=== PATIENT | male | born 1995 | race Caucasian/White ===

== ENCOUNTER 2020-10-12 21:49 | Emergency (ER) | payer SELFPAY ==
[2020-10-12 21:54] VITALS: BP 127/80; PULSE 92; RESP 21; TEMP 36.8; O2SAT 97; BMI 32.1
--- NOTE | 2020-10-12 22:09 | W.ED.GENADLT ---
HPI - General Adult General: Chief complaint: Abdominal Pain Stated complaint: NAUSEA/VOMITING, DIARRHEA Time Seen by Provider: 10/12/20 22:04 History of Present Illness: HPI narrative: Patient presents with a 3-day history of nausea vomiting diarrhea. Patient is able to keep crackers and Sprite down but that is about all. Denies any fever but has had some chills. Onset (ago): day(s) Associated symptoms: Reports fevers/chills, nausea and vomiting; Deny chest pain, dyspnea, headache(s) or rash Treatments prior to arrival: none Review of Systems Const: Denies: fever(s), chills or body aches Eyes: Denies: change in vision or blurry vision ENMT: Denies: throat pain or nasal congestion Card: Denies: chest pain or dyspnea on exertion Resp: Denies: dyspnea, productive cough or non-productive cough GI: Reports: nausea, vomiting and diarrhea : Denies: difficulty urinating Musc: Denies: extremity pain Skin/Breast: Denies: rash Neuro: Denies: headache(s) Psych: Denies: anxiety or depression Jaya/Lymph: Denies: easy bruising Physical Exam Const: COMMON NORMALS: no acute distress, average body habitus and patient oriented x3 HENMT: COMMON NORMALS: normocephalic HEAD & SCALP: normal to inspection and normocephalic FACE & SINUS: normal facial exam Eye: COMMON NORMALS: conjunctivae normal GENERAL EYE: appearance normal, both eyes and all related structures CONJUNCTIVA: Yes conjunctivae normal Neck/C-Spine: COMMON NORMALS: no JVD Chest: COMMONS NORMALS: normal inspection of the chest Resp: COMMON NORMALS: normal respiratory effort and clear to auscultation bilaterally AUSCULTATION: clear to auscultation bilaterally Cardio: COMMON NORMALS: no JVD, regular rate and regular rhythm RATE: regular rate RHYTHM: regular rhythm GI: COMMON NORMALS: Normal to inspection, nondistended, normoactive bowel sounds present AUSCULTATION: Yes normoactive bowel sounds (Patient is vomiting while examination is gone) Extremity: COMMON NORMALS: normal to inspection and full ROM Neuro: COMMON NORMALS: patient oriented x3 Course Vital Signs: Vital signs: Vital Signs Temperature 98.2 F 10/12/20 21:54 Pulse Rate 87 10/13/20 00:19 Respiratory Rate 16 10/13/20 00:33 Blood Pressure 126/79 10/13/20 00:19 Pulse Oximetry 99 10/13/20 00:19 MDM - General Adult MDM Narrative: Medical decision making narrative: Patient did much better with Reglan nausea stopped. Received 2 bags fluid. Discussed abnormal labs with Dr. Camarena went over CT results with Dr. Camarena. We felt that patient is good to go home follow-up with primary care provider drink plenty of fluids recheck labs this week. No evidence of stone blockage no evidence hepatitis. Patient was mildly dehydrated. Lab Data: Labs: Lab Results 10/12/20 10/12/20 10/12/20 Range/Units 22:10 22:10 22:10 WBC 12.6 H (4.0-10.0) 10^3/ uL RBC 5.46 H (4.1-5.3) 10^6/u L Hgb 16.9 H (11.7-16.6) g/dL Hct 46.0 (42.0-52.0) % MCV 84.2 (80-94) fL MCH 31.0 (28.0-34.0) pg MCHC 36.7 H (30.0-36.0) g/dL RDW 11.5 L (12.1-15.1) % Plt Count 317 (130-400) 10^3/c mm MPV 10.2 (7.4-10.4) fL Neut % (Auto) 67.7 % Lymph % (Auto) 24.8 % [place] % (Auto) 6.4 % Eos % (Auto) 0.3 % Baso % (Auto) 0.3 % Neut # (Auto) 8.51 H (1.8-7.7) 10^3/u L Lymph # (Auto) 3.1 (0.8-4.8) 10^3/u L [place] # (Auto) 0.8 (0.2-0.9) 10^3/u L Eos # (Auto) 0.0 (0.0-0.8) 10^3/u L Baso # (Auto) 0.0 (0.0-0.1) 10^3/u L Nucleated RBC % (a uto) 0 % Nucleated RBCs # 0.0 /100WBC Sodium 140 (136-145) mmol/L Potassium 3.5 (3.5-5.1) mmol/L Chloride 101 (98-107) mmol/L Carbon Dioxide 21 L (22-29) mmol/L Anion Gap 21.5 H (5-19) BUN 15 (6-20) mg/dL Creatinine 0.7 (0.7-1.2) mg/dL GFR Calculation 139.8 H (90-130) mL/min Glucose 100 (65-115) mg/dL Calculated Osmolal ity 291 (285-295) mOsm/k g Calcium 9.6 (8.5-10.5) mg/dL Total Bilirubin 2.5 H (0.15-1.2) mg/dL AST 15 (0-40) U/L ALT 19 (0-41) U/L Alkaline Phosphata se 62 (40-130) IU/L Total Protein 7.5 (6.6-8.7) g/dL Albumin 5.3 H (3.5-5.2) g/dL Globulin 2.2 (1.3-4.6) g/dL Lipase 12 L (13-60) U/L Urine Color (Yellow) Urine Appearance (CLEAR) Urine pH (5-7) Ur Specific Gravit y (1.005-1.030) Urine Protein (Negative) Urine Glucose (UA) (Normal) Urine Ketones (Negative) Urine Blood (Negative) Urine Nitrate (Negative) Urine Bilirubin (Negative) Urine Urobilinogen (Negative) mg/dL Ur Leukocyte Kianna ase (Negative) Hepatitis A IgM Ab Non-reactive (Nonreactive) Hep Bs Antigen Non-reactive (Nonreactive) Hep B Core IgM Ab Non-reactive (Nonreactive) Hepatitis C Antibo dy Non-reactive (Nonreactive) 10/12/20 Range/Units 22:34 WBC (4.0-10.0) 10^3/ uL RBC (4.1-5.3) 10^6/u L Hgb (11.7-16.6) g/dL Hct (42.0-52.0) % MCV (80-94) fL MCH (28.0-34.0) pg MCHC (30.0-36.0) g/dL RDW (12.1-15.1) % Plt Count (130-400) 10^3/c mm MPV (7.4-10.4) fL Neut % (Auto) % Lymph % (Auto) % [place] % (Auto) % Eos % (Auto) % Baso % (Auto) % Neut # (Auto) (1.8-7.7) 10^3/u L Lymph # (Auto) (0.8-4.8) 10^3/u L [place] # (Auto) (0.2-0.9) 10^3/u L Eos # (Auto) (0.0-0.8) 10^3/u L Baso # (Auto) (0.0-0.1) 10^3/u L Nucleated RBC % (a uto) % Nucleated RBCs # /100WBC Sodium (136-145) mmol/L Potassium (3.5-5.1) mmol/L Chloride (98-107) mmol/L Carbon Dioxide (22-29) mmol/L Anion Gap (5-19) BUN (6-20) mg/dL Creatinine (0.7-1.2) mg/dL GFR Calculation (90-130) mL/min Glucose (65-115) mg/dL Calculated Osmolal ity (285-295) mOsm/k g Calcium (8.5-10.5) mg/dL Total Bilirubin (0.15-1.2) mg/dL AST (0-40) U/L ALT (0-41) U/L Alkaline Phosphata se (40-130) IU/L Total Protein (6.6-8.7) g/dL Albumin (3.5-5.2) g/dL Globulin (1.3-4.6) g/dL Lipase (13-60) U/L Urine Color Yellow (Yellow) Urine Appearance Clear (CLEAR) Urine pH 8 H (5-7) Ur Specific Gravit y 1.015 (1.005-1.030) Urine Protein Neg (Negative) Urine Glucose (UA) Norm (Normal) Urine Ketones 2+ H (Negative) Urine Blood Neg (Negative) Urine Nitrate Negative (Negative) Urine Bilirubin 1+ H (Negative) Urine Urobilinogen 4+ H (Negative) mg/dL Ur Leukocyte Kianna ase Negative (Negative) Hepatitis A IgM Ab (Nonreactive) Hep Bs Antigen (Nonreactive) Hep B Core IgM Ab (Nonreactive) Hepatitis C Antibo dy (Nonreactive) Discharge Plan Discharge Patient Disposition: Home Clinical Impression: Gastroenteritis Condition: Stable Prescriptions: New Zofran 4 mg tablet 4 mg PO Q8H 3 Days Qty: 9 RF: 0 Discharge Orders: Discharge ED (Routine); Ordered 10/13/20 Ordered By: Jace Callahan Discharge Diet: Advance as tolerated and As Directed Discharge Activity: Increase activity as tolerated Patient Instructions: Gastroenteritis (ED) Activity Restrictions/Additional Instructions: Follow-up with medical provider as directed. Take medications as prescribed. Return to the ER or your medical provider if condition worsens. Please read and understand discharge instructions. If any questions ask please. If no improvement in [id number] hours follow-up your family medical provider. Slowly advance diet with clear liquids and crackers bread or Sprite type foods. Coding Level of Care Code ED Layboy Tender for Michael Fwd Exam Comprehensive
[2020-10-12] MEDS: sodium chloride 0.9% 1,000 ML 999 ML IV ×2 (22:19→23:20)
[2020-10-12] MEDS: ondansetron 2 mg/ML SDV 2 mL 8 MG IVP (22:20)
[2020-10-12 22:23] LABS: Basophils % 0.3 %; Eosinophils % 0.3 %; Hemoglobin 16.9 g/dL (11.7-16.6); Lymphocytes # 3.1 10^3/uL (0.8-4.8); Lymphocytes % 24.8 %; Mean Corpuscular HGB Conc 36.7 g/dL (30.0-36.0); Mean Corpuscular Volume 84.2 fL (80-94); Mean Platelet Volume 10.2 fL (7.4-10.4); Monocytes # 0.8 10^3/uL (0.2-0.9); Monocytes % 6.4 %; Neutrophils # 8.51 10^3/uL (1.8-7.7); Neutrophils % 67.7 %; Nucleated Red Blood Cells % 0 %; Platelet Count 317 10^3/cmm (130-400); Red Blood Count 5.46 10^6/uL (4.1-5.3); Red Cell Distribution Width 11.5 % (12.1-15.1); White Blood Count 12.6 10^3/uL (4.0-10.0)
[2020-10-12 22:38] LABS: Add Urine Microscopic? NO; Charge for UA Resulting for Rev
[2020-10-12 22:39] LABS: Alanine Aminotransferase 19 U/L (0-41); Albumin Level 5.3 g/dL (3.5-5.2); Alkaline Phosphatase 62 IU/L (40-130); Anion Gap 21.5 (5-19); Aspartate Amino Transferase 15 U/L (0-40); Blood Urea Nitrogen 15 mg/dL (6-20); Calcium 9.6 mg/dL (8.5-10.5); Carbon Dioxide 21 mmol/L (22-29); Chloride 101 mmol/L (98-107); Globulin 2.2 g/dL (1.3-4.6); Glomerular Filtration Rate 139.8 mL/min (90-130); Glucose 100 mg/dL (65-115); Lipase 12 U/L (13-60); Osmolality Calculated 291 mOsm/kg (285-295); Potassium 3.5 mmol/L (3.5-5.1); Sodium 140 mmol/L (136-145); Total Bilirubin 2.5 mg/dL (0.15-1.2); Total Protein 7.5 g/dL (6.6-8.7)
--- NOTE | 2020-10-12 22:52 | CTR_ITS ---
PROCEDURE INFORMATION: Exam: CT Abdomen And Pelvis With Contrast Exam date and time: 10/12/2020 10:56 PM Age: 25 years old Clinical indication: Nausea and vomiting; Patient HX: C/O n/v/d; Additional info: Abd pain, elevated bili TECHNIQUE: Imaging protocol: Computed tomography of the abdomen and pelvis with contrast. Axial, coronal and sagittal reformatted images were created and reviewed. Radiation optimization: All CT scans at this facility use at least one of these dose optimization techniques: automated exposure control; mA and/or kV adjustment per patient size (includes targeted exams where dose is matched to clinical indication); or iterative reconstruction. Contrast material: OMNI 300; Contrast volume: 95 ml; Contrast route: INTRAVENOUS (IV); COMPARISON: No relevant prior studies available. RADIATION DOSE METRICS: Total DLP (mGy-cm): 1749.2 FINDINGS: Liver: Unremarkable. Gallbladder and bile ducts: No radiodense gallstones. No biliary ductal dilatation. Pancreas: Unremarkable. Spleen: Mild splenomegaly. Adrenal glands: Normal. No mass. Kidneys and ureters: No mass. No radiodense calculi. No hydronephrosis. Stomach and bowel: No bowel wall thickening. No obstruction. No pneumatosis. Appendix: Normal. Intraperitoneal space: No free fluid. No organized fluid collection. No free air. Vasculature: Unremarkable. No aneurysm. Lymph nodes: Small mesenteric lymph nodes, nonspecific in appearance. No pathologically enlarged lymph nodes. Urinary bladder: Mild circumferential urinary bladder wall thickening, likely secondary to underdistention. Reproductive: Unremarkable. Bones/joints: No acute osseous abnormality. Soft tissues: Unremarkable. CT/CT abdomen pelvis w con* [id number]: 1[address] No CT evidence of acute intra-abdominal or pelvic pathology. 2. Additional findings, as above. Radiation Dose CTDIVOL = (mGy): DLP = 1749.2 (mGy-cm)
[2020-10-12 22:53] LABS: Bilirubin Urine 1+ (Negative); Blood Urine Neg (Negative); Glucose Urine UA Norm (Normal); Ketones Urine 2+ (Negative); Leukocyte Esterase Urine Negative (Negative); Nitrate Urine Negative (Negative); Protein Urine Neg (Negative); Specific Gravity, Urine 1.015 (1.005-1.030); Urine Appearance Clear (CLEAR); Urine Color Yellow (Yellow); Urobilinogen Urine 4+ mg/dL (Negative); pH Urine 8 (5-7)
[2020-10-12] MEDS: metoclopramide 5 mg/mL SDV 2 mL 10 MG IVP (23:32)
[2020-10-12] MEDS: iohexol 300 mg/mL 100 mL Btl IV (23:38)
[2020-10-12 23:41] LABS: Hepatitis A Antibody IgM Non-Reactive (Nonreactive); Hepatitis B Core IgM Non-Reactive (Nonreactive); Hepatitis B Surface Antigen Non-Reactive (Nonreactive); Hepatitis C Virus Antibody Non-Reactive (Nonreactive)
[2020-10-13 00:19] VITALS: BP 126/79; PULSE 87; RESP 19; O2SAT 99
[2020-10-13 00:33] VITALS: RESP 16
== END 2020-10-13 00:34 | disposition home or self-care (01) ==
PROVIDERS: Emergency Provider Nurse Practitioner Family
DX: K52.9 Noninfective gastroenteritis and colitis, unspecified (principal)
CPT/HCPCS: 74177; 80053; 80074; 81003; 83690; 85025; 96361; 96374; 96375; 99283; J2405; J2765; J7030; Q9967

== ENCOUNTER 2021-04-11 02:43 | Emergency (ER) | payer SELFPAY ==
[2021-04-11 02:51] VITALS: BP 132/95; PULSE 56; RESP 24; TEMP 36.3; O2SAT 97; BMI 32.1
--- NOTE | 2021-04-11 02:55 | CTR_ITS ---
PROCEDURE INFORMATION: Exam: CT Abdomen And Pelvis Without Contrast Exam date and time: 04/11/2021 2:55 AM Age: 26 years old Clinical indication: Abdominal pain; Right; Patient HX: RT flank pain; Additional info: Right flank pain TECHNIQUE: Imaging protocol: Computed tomography of the abdomen and pelvis without contrast. Radiation optimization: All CT scans at this facility use at least one of these dose optimization techniques: automated exposure control; mA and/or kV adjustment per patient size (includes targeted exams where dose is matched to clinical indication); or iterative reconstruction. COMPARISON: CT abdomen pelvis w con* [id number] 10/12/2020 11:36 PM RADIATION DOSE METRICS: Total DLP (mGy-cm): 1530.71 FINDINGS: Lungs: The lung bases are clear. Liver: Unremarkable. Gallbladder and bile ducts: No definite gallbladder abnormality by CT. No biliary tree dilation. Pancreas: Unremarkable. Spleen: Unremarkable. Adrenal glands: Unremarkable. Kidneys and ureters: Very small right lower pole intrarenal calculus. Mild right hydronephrosis and hydroureter. There is a 2-3 mm distal right ureteral calculus, about 15 mm from the UVJ. The left kidney appears essentially unremarkable. Stomach and bowel: No significant bowel distention. There are no CT findings to strongly suggest diverticulitis. Appendix: The appendix is visualized and appears normal. Intraperitoneal space: No free intraperitoneal air, or ascites. Vasculature: No evidence for abdominal aortic aneurysm. Lymph nodes: Numerous borderline/mildly prominent mesenteric nodes, a nonspecific appearance. These are probably slightly more prominent than on the comparison exam This may represent reactive lymphadenopathy. Mesenteric adenitis might also be considered. Urinary bladder: The urinary bladder is essentially empty, limiting evaluation. Reproductive: Essentially unremarkable for age. Bones/joints: Mild degenerative disc changes in the lower lumbar spine. Soft tissues: Very small umbilical hernia, containing only fat. CT/CT kidney stone [id number] IMPRESSION: 1. 2-3 mm distal right ureteral calculus, details above. 2. Mild right hydronephrosis and hydroureter. 3. Normal appendix. 4. Numerous borderline/mildly prominent mesenteric nodes, see above discussion. 5. No free air or bowel distention. 6. Other findings discussed above. Radiation Dose CTDIVOL = (mGy): DLP = 1530.71 (mGy-cm)
--- NOTE | 2021-04-11 02:57 | W.ED.ABDPA2 ---
HPI - Abdominal Pain General: Chief Complaint: Abdominal Pain Stated Complaint: lower rt abd pain to back Time Seen by Provider: 04/11/21 02:44 Source: patient Mode of arrival: ambulatory Limitations: no limitations History of Present Illness: HPI narrative: 26-year-old male who states he had a sudden onset of severe right flank pain that radiates into his groin an hour and a half ago. Patient is obviously in pain here he states he had vomited due to the pain he states pain 10 out of 10. He denies any worsening proving factors. Denies any tenderness palpation. He has no history of kidney stones denies any testicle or penile pain. Associated Symptoms: Reports nausea and vomiting; Denies chills and fever(s) Review of Systems Const: Denies: fever(s), chills, body aches or change in appetite Eyes: Denies: blurry vision or eye discomfort ENMT: Denies: throat pain or dental pain Card: Denies: chest pain Resp: Denies: dyspnea GI: Reports: abdominal pain, nausea and vomiting : Reports: flank pain Musc: Denies: neck pain or back pain Skin/Breast: Denies: rash Neuro: Denies: headache(s) Psych: Denies: depression Jaya/Lymph: Denies: easy bruising All/Imm: Denies: urticaria Physical Exam Const: COMMON NORMALS: no acute distress, patient oriented x3 and healthy appearing HENMT: COMMON NORMALS: normocephalic and atraumatic HEAD & SCALP: normocephalic and atraumatic Eye: COMMON NORMALS: Equal, round and reactive pupils present and EOMs intact bilaterally PUPIL: Yes Equal, round and reactive pupils present Neck/C-Spine: COMMON NORMALS: full ROM and supple Chest: COMMONS NORMALS: normal inspection of the chest and normal palpation of entire chest wall Resp: COMMON NORMALS: normal respiratory effort, No retractions, No use of accessory muscles and clear to auscultation bilaterally AUSCULTATION: clear to auscultation bilaterally Cardio: COMMON NORMALS: regular rate, regular rhythm and No murmurs present (Cardio) RATE: regular rate RHYTHM: regular rhythm GI: COMMON NORMALS: Normal to inspection, nondistended, normoactive bowel sounds present, Soft to palpation, non-tender and no masses PALPATION: Yes Soft to palpation Extremity: COMMON NORMALS: normal to inspection and full ROM Neuro: COMMON NORMALS: patient oriented x3, moves all extremities and no focal motor deficits Psych: COMMON NORMALS: mental status grossly normal, Normal thought process present and cooperative THOUGHT PROCESS: Normal thought process present Skin: COMMON NORMALS: no rashes or lesions noted and no wounds GENERAL SKIN EXAM: no rashes or lesions noted Course Vital Signs: Vital signs: Vital Signs Temperature 97.4 F L 04/11/21 02:51 Pulse Rate 56 L 04/11/21 02:51 Respiratory Rate 22 H 04/11/21 04:29 Blood Pressure 132/95 04/11/21 02:51 Pulse Oximetry 97 04/11/21 02:51 MDM - Abdominal Pain MDM Narrative: Medical decision making narrative: Patient presents here with a kidney stone small kidney stone urinary to pass patient's pain is improved he is stable for discharge and will pass at home we will give him follow-up with Dr. Shanks will prescribe him pain meds for home. He is return if worsening or change agrees to plan. Lab Data: Labs: Lab Results 04/11/21 04/11/21 04/11/21 02:59 02:59 03:00 WBC 8.0 10^3/uL 10^3/ uL (4.0-10.0) RBC 4.78 10^6/uL 10^6 /uL (4.1-5.3) Hgb 14.8 g/dL g/dL (11.7-16.6) Hct 41.6 % L % (42.0-52.0) MCV 87.0 fl fl (80-94) MCH 31.0 pg pg (28.0-34.0) MCHC 35.6 g/dL g/dL (30.0-36.0) RDW 11.8 % L % (12.1-15.1) Plt Count 254 10^3/cmm 10^3 /cmm (130-400) MPV 10.4 fL fL (7.4-10.4) Neut % (Auto) 61.9 % % Lymph % (Auto) 28.2 % % [place] % (Auto) 8.0 % % Eos % (Auto) 1.2 % % Baso % (Auto) 0.5 % % Neut # (Auto) 4.96 10^3/uL 10^3 /uL (1.8-7.7) Lymph # (Auto) 2.3 10^3/uL 10^3/ uL (0.8-4.8) [place] # (Auto) 0.6 10^3/uL 10^3/ uL (0.2-0.9) Eos # (Auto) 0.1 10^3/uL 10^3/ uL (0.0-0.8) Baso # (Auto) 0.0 10^3/uL 10^3/ uL (0.0-0.1) Nucleated RBC % (a uto) 0 % % Nucleated RBCs # 0.0 /100WBC /100W BC Sodium 139 mmol/L mmol/L (136-145) Potassium 3.7 mmol/L mmol/L (3.5-5.1) Chloride 103 mmol/L mmol/L (98-107) Carbon Dioxide 21 mmol/L L mmol/ L (22-29) Anion Gap 18.7 (5-19) BUN 16 mg/dL mg/dL (6-20) Creatinine 0.9 mg/dL mg/dL (0.7-1.2) GFR Calculation 103.7 mL/min mL/m in (90-130) Glucose 163 mg/dL H mg/dL (65-115) Calculated Osmolal ity 293 mOsm/kg mOsm/ kg (285-295) Calcium 9.2 mg/dL mg/dL (8.5-10.5) Total Bilirubin 0.7 mg/dL mg/dL (0.15-1.2) AST 18 U/L U/L (0-40) ALT 20 U/L U/L (0-41) Alkaline Phosphata se 52 IU/L IU/L (40-130) Total Protein 6.7 g/dL g/dL (6.6-8.7) Albumin 4.6 g/dL g/dL (3.5-5.2) Globulin 2.1 g/dL g/dL (1.3-4.6) Lipase 18 U/L U/L (13-60) Urine Color Yellow (Yellow) Urine Appearance Clear (CLEAR) Urine pH 5 (5-7) Ur Specific Gravit y 1.030 (1.005-1.030) Urine Protein 1+ H (Negative) Urine Glucose (UA) Norm (Normal) Urine Ketones Negative (Negative) Urine Blood 3+ H (Negative) Urine Nitrate Negative (Negative) Urine Bilirubin Neg (Negative) Urine Urobilinogen Norm mg/dL mg/dL (Negative) Ur Leukocyte Kianna ase Negative (Negative) Urine RBC 40-50 /hpf H /hpf (0-2) Urine WBC Rare /hpf /hpf (0-5) Ur Squamous Epith Cells None /hpf /hpf (0-5) Calcium Oxalate Cr ystal 5-10 /hpf H /hpf Amorphous Sediment Not Reportable Urine Bacteria None /hpf /hpf (NONE) Urine Mucus 2+ /hpf /hpf Imaging Data ^: CT Abd/Pel: Attestation: I personally reviewed and interpreted this imaging study as follows: Radiologist's impression: Variable [address] [address] [address] Scan Report Signed Patient: Efren Sainz Unit #: [id number] : 1995 Age/Sex: 26 / M ADM Date: 04/11/21 Loc: ER Room/Bed: Attending Dr: Ordering Provider/Ordering MD: Patricia Storey MD Date of Service: 04/11/21 Procedure(s): CT kidney stone [id number] Accession Number(s): [id number] Report Number: [id number] PROCEDURE INFORMATION: Exam: CT Abdomen And Pelvis Without Contrast Exam date and time: 04/11/2021 2:55 AM Age: 26 years old Clinical indication: Abdominal pain; Right; Patient HX: RT flank pain; Additional info: Right flank pain TECHNIQUE: Imaging protocol: Computed tomography of the abdomen and pelvis without contrast. Radiation optimization: All CT scans at this facility use at least one of these dose optimization techniques: automated exposure control; mA and/or kV adjustment per patient size (includes targeted exams where dose is matched to clinical indication); or iterative reconstruction. COMPARISON: CT abdomen pelvis w con* [id number] 10/12/2020 11:36 PM RADIATION DOSE METRICS: Total DLP (mGy-cm): 1530.71 FINDINGS: Lungs: The lung bases are clear. Liver: Unremarkable. Gallbladder and bile ducts: No definite gallbladder abnormality by CT. No biliary tree dilation. Pancreas: Unremarkable. Spleen: Unremarkable. Adrenal glands: Unremarkable. Kidneys and ureters: Very small right lower pole intrarenal calculus. Mild right hydronephrosis and hydroureter. There is a 2-3 mm distal right ureteral calculus, about 15 mm from the UVJ. The left kidney appears essentially unremarkable. Stomach and bowel: No significant bowel distention. There are no CT findings to strongly suggest diverticulitis. Appendix: The appendix is visualized and appears normal. Intraperitoneal space: No free intraperitoneal air, or ascites. Vasculature: No evidence for abdominal aortic aneurysm. Lymph nodes: Numerous borderline/mildly prominent mesenteric nodes, a nonspecific appearance. These are probably slightly more prominent than on the comparison exam This may represent reactive lymphadenopathy. Mesenteric adenitis might also be considered. Urinary bladder: The urinary bladder is essentially empty, limiting evaluation. Reproductive: Essentially unremarkable for age. Bones/joints: Mild degenerative disc changes in the lower lumbar spine. Soft tissues: Very small umbilical hernia, containing only fat. CT/CT kidney stone [id number] IMPRESSION: 1. 2-3 mm distal right ureteral calculus, details above. 2. Mild right hydronephrosis and hydroureter. 3. Normal appendix. 4. Numerous borderline/mildly prominent mesenteric nodes, see above discussion. 5. No free air or bowel distention. 6. Other findings discussed above. Radiation Dose CTDIVOL = (mGy): DLP = 1530.71 (mGy-cm) Dictated By: Modesto Hill MD Signed By: Modesto Hill MD Signed Date/Time: 04/11/214 DD/ 4 Discharge Plan Discharge Patient Disposition: Home Clinical Impression: Kidney stone on right side Condition: Stable Prescriptions: New hydrocodone-acetaminophen 5-325 mg tablet 1 tab PO Q6H PRN (Reason: pain) Qty: 14 RF: 0 ondansetron 4 mg tablet,disintegrating 4 mg PO Q6H PRN (Reason: nausea and vomiting) Qty: 14 RF: 0 Discharge Orders: Discharge ED (Routine); Ordered 04/11/21 Ordered By: Patricia Storey Discharge Diet: Advance as tolerated Discharge Activity: Resume usual activity Patient Instructions: Kidney Stones (ED), Opioid Safety Coding Level of Care Code ED Lasting Machine Operator Hand Method for Chg Fwd Exam Comprehensive
[2021-04-11 03:03] VITALS: RESP 20
[2021-04-11 03:03] LABS: Basophils % 0.5 %; Eosinophils # 0.1 10^3/uL (0.0-0.8); Eosinophils % 1.2 %; Hematocrit 41.6 % (42.0-52.0); Hemoglobin 14.8 g/dL (11.7-16.6); Lymphocytes # 2.3 10^3/uL (0.8-4.8); Lymphocytes % 28.2 %; Mean Corpuscular HGB Conc 35.6 g/dL (30.0-36.0); Mean Platelet Volume 10.4 fL (7.4-10.4); Monocytes # 0.6 10^3/uL (0.2-0.9); Neutrophils # 4.96 10^3/uL (1.8-7.7); Neutrophils % 61.9 %; Nucleated Red Blood Cells % 0 %; Platelet Count 254 10^3/cmm (130-400); Red Blood Count 4.78 10^6/uL (4.1-5.3); Red Cell Distribution Width 11.8 % (12.1-15.1)
[2021-04-11] MEDS: HYDROmorphone 1 mg/mL INJ 1 mL IVP ×2 (03:03→04:29)
[2021-04-11] MEDS: ondansetron 2 mg/ML SDV 2 mL 4 MG IVP (03:04)
[2021-04-11] MEDS: sodium chloride 0.9% 1,000 ML 999 ML IV (03:04)
[2021-04-11 03:29] LABS: Alanine Aminotransferase 20 U/L (0-41); Albumin Level 4.6 g/dL (3.5-5.2); Alkaline Phosphatase 52 IU/L (40-130); Anion Gap 18.7 (5-19); Aspartate Amino Transferase 18 U/L (0-40); Blood Urea Nitrogen 16 mg/dL (6-20); Calcium 9.2 mg/dL (8.5-10.5); Carbon Dioxide 21 mmol/L (22-29); Chloride 103 mmol/L (98-107); Globulin 2.1 g/dL (1.3-4.6); Glomerular Filtration Rate 103.7 mL/min (90-130); Glucose 163 mg/dL (65-115); Lipase 18 U/L (13-60); Osmolality Calculated 293 mOsm/kg (285-295); Potassium 3.7 mmol/L (3.5-5.1); Sodium 139 mmol/L (136-145); Total Bilirubin 0.7 mg/dL (0.15-1.2); Total Protein 6.7 g/dL (6.6-8.7)
[2021-04-11 03:29] LABS: Add Urine Microscopic? YES; Bilirubin Urine Neg (Negative); Blood Urine 3+ (Negative); Glucose Urine UA Norm (Normal); Ketones Urine Negative (Negative); Leukocyte Esterase Urine Negative (Negative); Nitrate Urine Negative (Negative); Protein Urine 1+ (Negative); Urine Appearance Clear (CLEAR); Urine Color Yellow (Yellow); Urobilinogen Urine Norm (Negative); pH Urine 5 (5-7)
[2021-04-11 03:30] LABS: RBC Urine 40-50 /hpf (0-2); WBC Urine RARE /hpf (0-5)
[2021-04-11 03:31] LABS: Mucus Urine 2+ /hpf
[2021-04-11] MEDS: ketorolac 30 mg/mL INJ 15 MG IVP (04:28)
[2021-04-11 04:29] VITALS: RESP 22
[2021-04-11 05:16] VITALS: RESP 16; O2SAT 98
[2021-04-11] MEDS: fentaNYL 50 mcg/mL INJ 2mL IVP (05:16)
[2021-04-11 05:26] VITALS: BP 142/78; PULSE 78; RESP 18; O2SAT 98
--- NOTE | 2021-04-11 09:37 | DCPLANNER ---
manager floral had message to schedule a follow up appointment for patient with Dr. Shanks. manager floral called the office of Dr. Shanks, spoke with Kaylah, gave clinic patients information. manager floral was told that patients information would be printed and reviewed. Clinic will call patient with appointment information.
--- NOTE | 2021-04-15 15:30 | DCPLANNER ---
Patient had a follow up appointment scheduled for 04.14.[address] Cat office - patient did not attend appointment.
== END 2021-04-11 05:29 | disposition home or self-care (01) ==
PROVIDERS: Emergency Provider Emergency Medicine
DX: N20.0 Calculus of kidney (principal)
CPT/HCPCS: 74176; 80053; 81001; 83690; 85025; 96361; 96374; 96375; 96376; 99284; J1170; J1885; J2405; J3010; J7030

== ENCOUNTER 2021-04-15 17:21 | Emergency (ER) | payer SELFPAY ==
[2021-04-15 17:37] VITALS: BP 130/67; PULSE 63; RESP 16; TEMP 36.8; O2SAT 98; BMI 32.1
[2021-04-15 18:39] LABS: Bilirubin Urine Neg (Negative); Blood Urine 2+ (Negative); Glucose Urine UA Norm (Normal); Ketones Urine 2+ (Negative); Nitrate Urine Negative (Negative); Protein Urine Neg (Negative); Specific Gravity, Urine 1.005 (1.005-1.030); Sulfosalicylic Acid Urine Positive (Negative); Urine Appearance Clear (CLEAR); Urine Color Yellow (Yellow); pH Urine 8 (5-7)
[2021-04-15 18:40] LABS: Add Urine Culture? No; Add Urine Microscopic? YES; Bacteria Urine TRACE /hpf; Leukocyte Esterase Urine Trace (Negative); Mucus Urine 2+ /hpf; RBC Urine 0-4 /hpf (0-2); Urobilinogen Urine 4 mg/dL (Negative); WBC Urine 0-4 /hpf (0-5)
--- NOTE | 2021-04-15 21:06 | PC.NURSE ---
no answer @ [id number] for room
--- NOTE | 2021-04-15 21:17 | PC.NURSE ---
no answer @ [id number] for room
== END 2021-04-15 21:18 | disposition left against medical advice (07) ==
PROVIDERS: Family Medicine; PCP Urology
DX: Z53.21 Procedure and treatment not carried out due to patient leaving prior to being seen by health care provider (principal)
CPT/HCPCS: 81001

== ENCOUNTER 2022-02-06 15:50 | Emergency (ER) | payer SELFPAY ==
[2022-02-06 16:35] VITALS: BP 152/74; PULSE 69; RESP 18; TEMP 37.4; O2SAT 99; BMI 30.1
--- NOTE | 2022-02-06 16:45 | XRR_ITS ---
PROCEDURE INFORMATION: Exam: XR Chest Exam date and time: 02/06/2022 4:52 PM Age: 26 years old Clinical indication: Shortness of breath; Additional info: SOB TECHNIQUE: Imaging protocol: Radiologic exam of the chest. Views: 2 views. COMPARISON: No relevant prior studies available. FINDINGS: Lungs: Lungs are clear bilaterally. Pleural spaces: No pleural effusion. No pneumothorax. Heart/Mediastinum: The cardiac silhouette and mediastinal contours are unremarkable. Bones/joints: Unremarkable for age. XR/XR chest 2V* [id number] IMPRESSION: Negative chest radiographs.
[2022-02-06 17:31] LABS: Basophils % 0.3 %; Eosinophils # 0.1 10^3/uL (0.0-0.8); Eosinophils % 0.5 %; Hematocrit 44.2 % (42.0-52.0); Lymphocytes # 2.2 10^3/uL (0.8-4.8); Lymphocytes % 23.3 %; Mean Corpuscular HGB Conc 36.2 g/dL (30.0-36.0); Mean Corpuscular Hemoglobin 31.1 pg (28.0-34.0); Mean Platelet Volume 9.9 fL (7.4-10.4); Monocytes # 0.6 10^3/uL (0.2-0.9); Monocytes % 6.2 %; Neutrophils # 6.41 10^3/uL (1.8-7.7); Neutrophils % 69.4 %; Nucleated Red Blood Cells % 0 %; Platelet Count 319 10^3/cmm (130-400); Red Blood Count 5.14 10^6/uL (4.1-5.3); Red Cell Distribution Width 11.5 % (12.1-15.1); White Blood Count 9.2 10^3/uL (4.0-10.0)
--- NOTE | 2022-02-06 17:35 | ED_ITS ---
HPI - URI/Sore Throat General: Chief Complaint: Shortness of Breath/Dyspnea Stated Complaint: SOB Time Seen by Provider: 02/06/22 17:00 History of Present Illness: Patient is a 26-year-old male comes to the ED with upper respiratory symptoms. Patient is currently having a productive cough with thick green and yellow sputum, fever and some lower bilateral pleuritic rib pain. Symptoms started yesterday, but patient says 10 days ago he was having COVID symptoms and tested positive for COVID. He is feeling better about 2 days ago, but then yesterday symptoms of productive cough and fever started up again. He admits having episodes of vomiting but is able to keep p.o. food and fluids down. Associated symptoms: Reports fever(s); Deny abdominal pain, chills, chest pain, diarrhea, headache(s), nasal congestion, nausea or vomiting Review of Systems Const: Reports: fever(s); Denies: chills or fatigue Eyes: Denies: change in vision or eye discomfort ENMT: Denies: throat pain, odynophagia, nasal discharge or nasal congestion Card: Denies: chest pain, palpitations, edema, swelling of feet/ankles, dyspnea on exertion or orthopnea Resp: Reports: productive cough and pain on inspiration; Denies: dyspnea or non-productive cough GI: Denies: abdominal pain, nausea, vomiting, diarrhea, constipation or hematochezia : Denies: flank pain, difficulty urinating, dysuria or hematuria Musc: Denies: neck pain, back pain or extremity swelling Skin/Breast: Denies: rash or new lesions Neuro: Denies: headache(s), numbness in extremities or weakness in extremities [facility] ED PFSH: Medical History No pertinent family history Surgical History No pertinent past surgical history Physical Exam Const: COMMON NORMALS: no acute distress, patient oriented x3 and alert GENERAL APPEARANCE: cooperative and comfortable HENMT: COMMON NORMALS: normocephalic HEAD & SCALP: normocephalic MOUTH: Normal oral and palatal mucosa present THROAT: posterior oropharynx normal and uvula midline Eye: COMMON NORMALS: Equal, round and reactive pupils present and conjunctivae normal CONJUNCTIVA: Yes conjunctivae normal PUPIL: Yes Equal, round and reactive pupils present Neck/C-Spine: COMMON NORMALS: supple GENERAL: Yes normal visual inspection Chest: CHEST: Yes tenderness costal cartilage Laterality: bilateral Resp: COMMON NORMALS: normal respiratory effort, No retractions, No use of accessory muscles and clear to auscultation bilaterally AUSCULTATION: clear to auscultation bilaterally Cardio: COMMON NORMALS: regular rate, regular rhythm, S1 normal heart sound present, S2 normal heart sound present, No gallops present (Cardio), No clicks present (Cardio), No murmurs present (Cardio) and Peripheral pulses 2+ throughout RATE: regular rate RHYTHM: regular rhythm HEART SOUNDS: S1 normal heart sound present and S2 normal heart sound present PERIPHERAL PULSES: Peripheral pulses 2+ throughout GI: COMMON NORMALS: Normal to inspection, nondistended, normoactive bowel sounds present, Soft to palpation, non-tender and no masses PALPATION: Yes Soft to palpation : COMMON NORMALS: Yes no CVA tenderness BLADDER/KIDNEY EXAM: Yes no CVA tenderness Back/Pelvis: COMMON NORMALS: no CVA tenderness Extremity: COMMON NORMALS: normal to inspection Neuro: COMMON NORMALS: patient oriented x3 SENSORIUM/ORIENTATION: Yes alert GAIT: Yes Normal gait present Skin: GENERAL SKIN EXAM: dry skin Course Vital Signs: Vital signs: Vital Signs Temperature 99.3 F 02/06/22 16:35 Pulse Rate 69 02/06/22 16:35 Respiratory Rate 18 02/06/22 16:35 Blood Pressure 152/74 02/06/22 16:35 Pulse Oximetry 99 02/06/22 16:35 Oxygen Delivery Me thod 02/06/22 16:35 MDM - URI/Sore Throat Medical Decision Making Patient is a 26-year-old male comes to the ED with upper respiratory symptoms. Patient is currently having a productive cough with thick green and yellow sputum, fever and some lower bilateral pleuritic rib pain. Symptoms started yesterday, but patient says 10 days ago he was having COVID symptoms and tested positive for COVID. Vitals are stable. Patient appears nontoxic in no acute distress or pain. Patient has some bilateral chest tenderness. Exam is benign. Chest x-ray negative. CBC is unremarkable. Patient was diagnosed with bronchitis and costochondritis and was discharged home. He was discharged home with a prescription for azithromycin and steroid. Follow-up with PCP in the next week for reevaluation. Return ED precautions given. Patient is to agree with plan. Lab Data I reviewed the patient's lab results. : 02/06/22 17:19 Radiology Impressions Chest X-Ray 02/06/22 16:45 IMPRESSION: Negative chest radiographs. Laboratory Results WBC 9.2 10^3/uL (4.0-10.0) 02/06/22 17:19 RBC 5.14 10^6/uL (4.1-5.3) 02/06/22 17:19 Hgb 16.0 g/dL (11.7-16.6) 02/06/22 17:19 Hct 44.2 % (42.0-52.0) 02/06/22 17:19 MCV 86.0 fl (80-94) 02/06/22 17:19 MCH 31.1 pg (28.0-34.0) 02/06/22 17:19 MCHC 36.2 g/dL (30.0-36.0) H 02/06/22 17:19 RDW 11.5 % (12.1-15.1) L 02/06/22 17:19 Plt Count 319 10^3/cmm (130-400) 02/06/22 17:19 MPV 9.9 fL (7.4-10.4) 02/06/22 17:19 Neut % (Auto) 69.4 % 02/06/22 17:19 Lymph % (Auto) 23.3 % 02/06/22 17:19 [place] % (Auto) 6.2 % 02/06/22 17:19 Eos % (Auto) 0.5 % 02/06/22 17:19 Baso % (Auto) 0.3 % 02/06/22 17:19 Neut # (Auto) 6.41 10^3/uL (1.8-7.7) 02/06/22 17:19 Lymph # (Auto) 2.2 10^3/uL (0.8-4.8) 02/06/22 17:19 [place] # (Auto) 0.6 10^3/uL (0.2-0.9) 02/06/22 17:19 Eos # (Auto) 0.1 10^3/uL (0.0-0.8) 02/06/22 17:19 Baso # (Auto) 0.0 10^3/uL (0.0-0.1) 02/06/22 17:19 Nucleated RBC % (auto) 0 % 02/06/22 17:19 Nucleated RBCs # 0.0 /100WBC 02/06/22 17:19 Discharge Plan Discharge Patient Disposition: Home Clinical Impression: Bronchitis, Costochondritis Condition: Stable Prescriptions: New azithromycin 250 mg tablet 250 mg PO DAILY 4 Days Qty: 4 0RF Rx Instructions: start on day 2 of therapy Medrol (Antonio) 4 mg tablets,dose pack See Rx Instructions .ROUTE .COMPLEX Qty: 21 0RF Rx Instructions: orally per package directions ibuprofen 600 mg tablet 600 mg PO Q8H PRN (Reason: pain) Qty: 20 0RF No Action hydrocodone-acetaminophen 5-325 mg tablet 1 tab PO Q6H PRN (Reason: pain) Qty: 14 0RF ondansetron 4 mg tablet,disintegrating 4 mg PO Q6H PRN (Reason: nausea and vomiting) Qty: 14 0RF Discharge Orders: Discharge ED (Routine); Ordered 02/06/22 Ordered By: Luis Martin Referrals: Jai Shanks MD [Primary Care Provider] - Discharge Diet: Regular Discharge Activity: Increase activity as tolerated Activity Restrictions/Additional Instructions: Follow-up with medical provider as directed in the next 5 to 7 days for reevaluation. Take medications as prescribed. Return to the ER or your medical provider if condition worsens. Please read and understand discharge instructi ons. Thank you for choosing [facility] for your healthcare needs today. Please realize this is an emergency room and that we are providing you with a medical screening exam and this may not be complete and all inclusive of all the testing and or work up that you may need to determine your ailment or severity of your illness. It is very important that you follow up as instructed or that you return to the Emergency Department should you have concerns or if your condition changes or worsens in any way. Stand Alone Forms: Work/School Release Coding Level of Care Code ED Information Services Vice President for Michael Fwshabbir Exam Comprehensive
[2022-02-06] MEDS: predniSONE 20 mg Tablet 60 MG PO (17:55)
[2022-02-06] MEDS: azithromycin 250 mg Tablet 500 MG PO (17:56)
[2022-02-06] MEDS: ketorolac 60 mg/2 mL INJ IM (17:56)
== END 2022-02-06 19:00 | disposition home or self-care (01) ==
PROVIDERS: Physician Assistant; Emergency Provider Physician Assistant; PCP Urology
DX: J40 Bronchitis, not specified as acute or chronic (principal); M94.0 Chondrocostal junction syndrome [Tietze]
CPT/HCPCS: 71046; 85025; 96372; 99284; J1885; J7512; Q0144

== ENCOUNTER 2023-08-13 22:44 | Emergency (ER) | payer MEDICAID, SELFPAY ==
[2023-08-13 22:50] VITALS: BP 133/78; PULSE 70; RESP 18; TEMP 36.6; O2SAT 98; BMI 33.0
--- NOTE | 2023-08-13 22:56 | ED_ITS ---
HPI - Abdominal Pain 2 General: Chief Complaint: Abdominal Pain Stated Complaint: abd pain Time Seen by Provider: 08/13/23 22:56 History of Present Illness: 28-year-old male presents emerged part w ith complaints of right flank and abdominal pain. He states he also had associated nausea and 2 episodes of vomiting. He states this started approximately 9 AM this morning. He states he has had similar problems in the past and does have a history of kidney stones. He states he did take pain medication approximately an hour and a half ago and had no relief at that time. He states his current pain is a 8 out of 10 and sharp and stabbing and intermittent. Associated Symptoms: Reports dysuria Review of Systems 2 General: Reports: 10 or more systems reviewed and unremarkable except in HPI and below : Reports: dysuria Musc: Reports: back pain [facility] ED 2 PFSH: Medical History No pertinent family history Surgical History No pertinent past surgical history Physical Exam 2 Narrative: EXAM NARRATIVE: Constitutional: the patient appears well nourished and of normal development. Vital signs as documented. No acute distress at present. Alert and oriented-to person, place, time and situation. Head, eyes, ears, nose, mouth, throat: Normocephalic, atraumatic. Pupils-equal, round, reactive to light. No scleral icterus. Normal-appearing external ears. Normal appearing nasal turbinates, no drainage. No obvious oral lesions, posterior oropharynx without erythema or exudates. Neck: Supple, trachea is midline, no lymphadenopathy, no jugular venous distension, thyromegaly, or carotid bruits. Carotid upstrokes are brisk bilaterally. Lungs: clear to auscultation to all lung roth. Symmetrical rise and fall of chest, no obvious signs of increased work of breathing at present. Cardiac: Regular rate and rhythm, positive S1, S2. No murmurs, rubs or gallops that I can appreciate Abdomen: Soft, non-tender to palpation, normal active bowel sounds to all quadrants. No palpable masses, no organomegaly and abdominal bruits. Extremities: 2+ pulses in the upper extremities that are equal bilaterally, 2+ pulses in the lower extremities that are equal bilaterally. Non-edematous. Moves all extremities well, sensation to all extremities are noted. Back: Right CVA tenderness to percussion, normal alignment Skin: Warm, dry, intact. Course 2 Vital Signs: Vital signs: Vital Signs Temperature 98 F 08/13/23 22:50 Pulse Rate 59 L 08/14/23 00:20 Respiratory Rate 16 08/14/23 00:20 Blood Pressure 127/59 08/14/23 00:20 Pulse Oximetry 94 08/14/23 00:20 Oxygen Delivery Me thod Room Air 08/13/23 22:50 MDM - Abdominal Pain Medical Decision Making Physical exam completed and documented I did obtain a CBC and CMP which are ultimately unremarkable with exception of a total bilirubin of 1.3. Urinalysis did show 3+ blood CT scan showed a 3 mm right UVJ stone with mild right hydroureteronephrosis with an additional 3 mm right renal stone and 1 mm left renal stone. Medical Records I reviewed the patient's medical records. Lab Data I reviewed the patient's lab results. 08/13/23 23:05 08/13/23 23:05 Labs/Radiology: Radiology Impressions Abdomen/Pelvis CT 08/13/23 22:58 IMPRESSION: 1. Mild right hydroureteronephrosis due to 3 mm right UVJ stone. Additional 3 mm right renal stone and 1 mm left renal stone. 2. Empty urinary bladder with questionable wall thickening, correlation with urinalysis suggested. Laboratory Results WBC 10.45 10^3/uL (3.29-11.43) 08/13/23 23:05 RBC 5.35 10^6/uL (3.85-5.65) 08/13/23 23:05 Hgb 16.60 g/dL (11.27-16.99) 08/13/23 23:05 Hct 47.5 % (37-53) 08/13/23 23:05 MCV 88.8 fl (82-101) 08/13/23 23:05 MCH 31.0 pg (27-33) 08/13/23 23:05 MCHC 34.9 g/dL (30-55) 08/13/23 23:05 RDW 12.0 % (12.1-15.1) L 08/13/23 23:05 Plt Count 279 10^3/cmm (157-399) 08/13/23 23:05 MPV 10.1 fL (7.4-10.4) 08/13/23 23:05 Neut % (Auto) 56.9 % 08/13/23 23:05 Lymph % (Auto) 32.2 % 08/13/23 23:05 [place] % (Auto) 7.9 % 08/13/23 23:05 Eos % (Auto) 1.9 % 08/13/23 23:05 Baso % (Auto) 0.6 % 08/13/23 23:05 Neut # (Auto) 5.95 10^3/uL (1.8-7.7) 08/13/23 23:05 Lymph # (Auto) 3.4 10^3/uL (0.8-4.8) 08/13/23 23:05 [place] # (Auto) 0.8 10^3/uL (0.2-0.9) 08/13/23 23:05 Eos # (Auto) 0.2 10^3/uL (0.0-0.8) 08/13/23 23:05 Baso # (Auto) 0.1 10^3/uL (0.0-0.1) 08/13/23 23:05 Nucleated RBC % (auto) 0 % 08/13/23 23:05 Nucleated RBCs # 0.0 /100WBC 08/13/23 23:05 Sodium 142 mmol/L (136-145) 08/13/23 23:05 Potassium 4.0 mmol/L (3.5-5.1) 08/13/23 23:05 Chloride 105 mmol/L (98-107) 08/13/23 23:05 Carbon Dioxide 26 mmol/L (22-29) 08/13/23 23:05 Anion Gap 15.0 (5-19) 08/13/23 23:05 BUN 14 mg/dL (6-20) 08/13/23 23:05 Creatinine 0.9 mg/dL (0.7-1.2) 08/13/23 23:05 GFR Calculation 102.0 mL/min (90-130) 08/13/23 23:05 Glucose 84 mg/dL (65-115) 08/13/23 23:05 Calculated Osmolality 294 mOsm/kg (285-295) 08/13/23 23:05 Calcium 9.2 mg/dL (8.5-10.5) 08/13/23 23:05 Total Bilirubin 1.3 mg/dL (0.15-1.2) H 08/13/23 23:05 AST 12 U/L (0-40) 08/13/23 23:05 ALT 12 U/L (0-41) 08/13/23 23:05 Alkaline Phosphatase 58 U/L (40-130) 08/13/23 23:05 Total Protein 7.0 g/dL (6.6-8.7) 08/13/23 23:05 Albumin 4.7 g/dL (3.5-5.2) 08/13/23 23:05 Globulin 2.3 g/dL (1.3-4.6) 08/13/23 23:05 Urine Color Yellow (Yellow) 08/13/23 23: Urine Appearance Sl hazy (CLEAR) A 08/13/23 23:27 Urine pH 6 (5-7) 08/13/23 23:27 Ur Specific Secor 1.020 (1.005-1.030) 08/13/23 23:27 Urine Protein Neg (Negative) 08/13/23 23: Urine Glucose (UA) Norm (Normal) 08/13/23 23: Urine Ketones Negative (Negative) 08/13/23 23: Urine Blood 3+ (Negative) H 08/13/23 23: Urine Nitrate Negative (Negative) 08/13/23 23: Urine Bilirubin Neg (Negative) 08/13/23 23: Urine Urobilinogen 1 mg/dL (Negative) H 08/13/23 23:27 Ur Leukocyte Esterase Negative (Negative) 08/13/23 23: Urine RBC 50-80 /hpf (0-2) H 08/13/23 23:27 Urine WBC 0-4 /hpf (0-5) H 08/13/23 23:27 Ur Squamous Epith Cells 0-4 /hpf (0-5) H 08/13/23 23: Amorphous Sediment Not Reportable 08/13/23 23:27 Urine Bacteria Trace /hpf (NONE) 08/13/23 23:27 Urine Mucus Trace /hpf 08/13/23 23:27 All radiology interpretation(s) finalized by discharge Discharge Plan Discharge Patient Disposition: Home Clinical Impression: Calculus of kidney, Acute flank pain Condition: Stable Prescriptions: New ondansetron HCl 4 mg tablet 4 mg PO Q12H 5 Days Qty: 10 0RF hydrocodone-acetaminophen 10-325 mg tablet 1 tab PO Q6H PRN (Reason: pain) Qty: 14 0RF Flomax 0.4 mg capsule 0.4 mg PO DAILY Qty: 30 0RF No Action doxycycline hyclate 100 mg tablet 100 mg PO BID 10 Days Qty: 20 0RF ibuprofen 600 mg tablet 600 mg PO Q8H PRN (Reason: pain) Qty: 20 0RF Discharge Orders: Discharge ED (Routine); Ordered 08/14/23 Ordered By: Mike Randolph Discharge Diet: Usual diet Discharge Activity: Resume usual activity Patient Instructions: Opioid Safety, Pain Management Activity Restrictions/Additional Instructions: Activity Restrictions/Additional Instructions: Thank you for choosing [facility] for your healthcare needs today. Please realize that you were seen in the Emergency Department and that we are providing you with an emergency medical screening exam and this may not be a complete and all inclusive of all the testing and or medical work-up that you may need to determine your ailment or severity of your illness. It is very important that you follow-up as instructed with your Primary care provider or Specialist for additional evaluation and to discuss your medical treatment plan. You may return to the Emergency Department should you have concerns or if your condition changes or worsens in any way. Call to make a Follow-up appointment: [facility] [address] [place] [address] [facility] [address] [place] [address] Dr.ive Oropeza [place] [address] Phone--[phone] Coding Level of Care Code ED Rn Diabetes for Michael Pierce
--- NOTE | 2023-08-13 22:58 | CTR_ITS ---
PROCEDURE INFORMATION: Exam: CT Abdomen And Pelvis Without Contrast Exam date and time: 08/13/2023 11:15 PM Age: 28 years old Clinical indication: Nausea and vomiting; Abdominal pain; Right; Patient HX: RT flank pain with n/v. History of renal stones. ; Additional info: Right flank pain TECHNIQUE: Imaging protocol: Computed tomography of the abdomen and pelvis without contrast. Radiation optimization: All CT scans at this facility use at least one of these dose optimization techniques: automated exposure control; mA and/or kV adjustment per patient size (includes targeted exams where dose is matched to clinical indication); or iterative reconstruction. COMPARISON: CT kidney stone [id number] 04/11/2021 3:07 AM RADIATION DOSE METRICS: Total DLP (mGy-cm): 866.43 FINDINGS: Liver: Normal. No mass. Gallbladder and bile ducts: Normal. No calcified stones. No ductal dilation. Pancreas: Normal. No ductal dilation. Spleen: Normal. No splenomegaly. Adrenal glands: Normal. No mass. Kidneys and ureters: 1 mm nonobstructive left renal stone. Mild right hydronephrosis and hydroureter due to 3 mm stone in the distal right ureter nearly of the UV junction. Additional 3 mm calyceal stone in the lower pole of the right kidney. No parenchymal scarring. Stomach and bowel: Unremarkable. No obstruction. No mucosal thickening. Appendix: Appendix is unremarkable. Intraperitoneal space: Unremarkable. No free air. No significant fluid collection. Vasculature: Unremarkable. No abdominal aortic aneurysm. Lymph nodes: Unremarkable. No enlarged lymph nodes. Urinary bladder: Empty with questionable wall thickening. Reproductive: Unremarkable as visualized. Bones/joints: Presumed bone islands in the left femur neck, right pubic on, right iliac bone are unchanged from 04/11/2021. Mild disc osteophyte complex at L5-S1 with mild canal and foraminal stenosis. Soft tissues: Unremarkable. CT/CT kidney stone [id number] IMPRESSION: 1. Mild right hydroureteronephrosis due to 3 mm right UVJ stone. Additional 3 mm right renal stone and 1 mm left renal stone. 2. Empty urinary bladder with questionable wall thickening, correlation with urinalysis suggested.
[2023-08-13 23:22] LABS: Basophils # 0.1 10^3/uL (0.0-0.1); Basophils % 0.6 %; Eosinophils # 0.2 10^3/uL (0.0-0.8); Eosinophils % 1.9 %; Hematocrit 47.5 % (37-53); Lymphocytes # 3.4 10^3/uL (0.8-4.8); Lymphocytes % 32.2 %; Mean Corpuscular HGB Conc 34.9 g/dL (30-55); Mean Corpuscular Volume 88.8 fl (82-101); Mean Platelet Volume 10.1 fL (7.4-10.4); Monocytes # 0.8 10^3/uL (0.2-0.9); Monocytes % 7.9 %; Neutrophils # 5.95 10^3/uL (1.8-7.7); Neutrophils % 56.9 %; Nucleated Red Blood Cells % 0 %; Platelet Count 279 10^3/cmm (157-399); Red Blood Count 5.35 10^6/uL (3.85-5.65); White Blood Count 10.45 10^3/uL (3.29-11.43)
[2023-08-13] MEDS: ondansetron 2 mg/ML SDV 2 mL 4 MG IVP (23:29)
[2023-08-13] MEDS: sodium chloride 0.9% 1,000 ML 999 ML IV (23:29)
[2023-08-13] MEDS: ketorolac 30 mg/mL INJ IVP (23:29)
[2023-08-13 23:41] LABS: Alanine Aminotransferase 12 U/L (0-41); Albumin Level 4.7 g/dL (3.5-5.2); Alkaline Phosphatase 58 U/L (40-130); Aspartate Amino Transferase 12 U/L (0-40); Blood Urea Nitrogen 14 mg/dL (6-20); Calcium 9.2 mg/dL (8.5-10.5); Carbon Dioxide 26 mmol/L (22-29); Chloride 105 mmol/L (98-107); Creatinine Clr Calc Pharmacy 150.4701; Globulin 2.3 g/dL (1.3-4.6); Glucose 84 mg/dL (65-115); Osmolality Calculated 294 mOsm/kg (285-295); Sodium 142 mmol/L (136-145); Total Bilirubin 1.3 mg/dL (0.15-1.2)
[2023-08-13 23:42] LABS: Add Urine Culture? Yes; Add Urine Microscopic? YES; Bacteria Urine TRACE /hpf; Bilirubin Urine Neg (Negative); Blood Urine 3+ (Negative); Glucose Urine UA Norm (Normal); Ketones Urine Negative (Negative); Leukocyte Esterase Urine Negative (Negative); Mucus Urine TRACE /hpf; Nitrate Urine Negative (Negative); Protein Urine Neg (Negative); RBC Urine 50-80 /hpf (0-2); Squamous Epithelial Cell Urine 0-4 /hpf (0-5); Urine Appearance SL Hazy (CLEAR); Urine Color Yellow (Yellow); Urobilinogen Urine 1 mg/dL (Negative); WBC Urine 0-4 /hpf (0-5); pH Urine 6 (5-7)
[2023-08-14 00:20] VITALS: BP 127/59; PULSE 59; RESP 16; O2SAT 94
[2023-08-14] MEDS: tamsulosin 0.4 mg Capsule 0.400000000000000022 MG PO (00:20)
[2023-08-14 01:21] VITALS: BP 127/59; PULSE 59; RESP 16; TEMP 36.6; O2SAT 94
== END 2023-08-14 01:22 | disposition home or self-care (01) ==
PROVIDERS: Emergency Provider Internal Medicine
DX: N13.2 Hydronephrosis with renal and ureteral calculous obstruction (principal); R10.9 Unspecified abdominal pain
CPT/HCPCS: 36415; 74176; 80053; 81001; 85025; 87086; 96361; 96374; 96375; 99285; J1885; J2405; J7030

== ENCOUNTER 2023-11-23 15:22 | Emergency (ER) | payer MEDICAID, SELFPAY ==
[2023-11-23 15:38] VITALS: BP 115/76; PULSE 66; RESP 22; TEMP 36.7; O2SAT 98
[2023-11-23 16:00] LABS: Basophils # 0.1 10^3/uL (0.0-0.1); Basophils % 0.6 %; Eosinophils # 0.1 10^3/uL (0.0-0.8); Eosinophils % 1.4 %; Hematocrit 44.8 % (37-53); Lymphocytes # 2.5 10^3/uL (0.8-4.8); Lymphocytes % 29.9 %; Mean Corpuscular HGB Conc 36.2 g/dL (30-55); Mean Corpuscular Hemoglobin 31.3 pg (27-33); Mean Corpuscular Volume 86.5 fl (82-101); Mean Platelet Volume 10.3 fL (7.4-10.4); Monocytes # 0.6 10^3/uL (0.2-0.9); Monocytes % 6.8 %; Neutrophils # 5.17 10^3/uL (1.8-7.7); Neutrophils % 60.9 %; Nucleated Red Blood Cells % 0 %; Platelet Count 236 10^3/cmm (157-399); Red Blood Count 5.18 10^6/uL (3.85-5.65); Red Cell Distribution Width 11.9 % (12.1-15.1); White Blood Count 8.49 10^3/uL (3.29-11.43)
[2023-11-23 16:04] LABS: Add Urine Microscopic? YES; Bilirubin Urine Neg (Negative); Blood Urine 3+ (Negative); Glucose Urine UA Norm (Normal); Ketones Urine 1+ (Negative); Leukocyte Esterase Urine Negative (Negative); Nitrate Urine Negative (Negative); Protein Urine Neg (Negative); Urine Appearance Clear (CLEAR); Urine Color Yellow (Yellow); Urobilinogen Urine 1 mg/dL (Negative); pH Urine 7 (5-7)
[2023-11-23 16:07] LABS: Add Urine Culture? Yes; Mucus Urine 2+ /hpf; RBC Urine >100 /hpf (0-2); WBC Urine 0-4 /hpf (0-5)
[2023-11-23 16:17] LABS: Alanine Aminotransferase 20 U/L (0-41); Albumin Level 4.6 g/dL (3.5-5.2); Alkaline Phosphatase 63 U/L (40-130); Aspartate Amino Transferase 17 U/L (0-40); Blood Urea Nitrogen 12 mg/dL (6-20); Calcium 9.4 mg/dL (8.5-10.5); Carbon Dioxide 23 mmol/L (22-29); Chloride 103 mmol/L (98-107); Creatinine Clr Calc Pharmacy 150.4701; Globulin 2.3 g/dL (1.3-4.6); Glucose 94 mg/dL (65-115); Lipase 16 U/L (13-60); Osmolality Calculated 288 mOsm/kg (285-295); Sodium 139 mmol/L (136-145); Total Protein 6.9 g/dL (6.6-8.7)
--- NOTE | 2023-11-23 17:09 | CTR_ITS ---
PROCEDURE INFORMATION: Exam: CT Abdomen And Pelvis Without Contrast Exam date and time: 11/23/2023 5:56 PM Age: 28 years old Clinical indication: Abdominal pain; Flank; Left; Patient HX: HX of stones; Additional info: L flank pain TECHNIQUE: Imaging protocol: Computed tomography of the abdomen and pelvis without contrast. Radiation optimization: All CT scans at this facility use at least one of these dose optimization techniques: automated exposure control; mA and/or kV adjustment per patient size (includes targeted exams where dose is matched to clinical indication); or iterative reconstruction. COMPARISON: CT kidney stone [id number] 08/13/2023 11:15 PM RADIATION DOSE METRICS: Total DLP (mGy-cm): 981 FINDINGS: Lungs: The lung bases are clear. Heart: Heart size is within normal limits. There is no pericardial effusion or pericardial thickening. Liver: The liver is normal. No hepatic masses are identified. Gallbladder and biliary ducts: The gallbladder is normal. There is no ductal dilatation. Pancreas: The pancreas is normal. Spleen: The spleen is normal. Adrenal glands: The adrenal glands are normal. Kidneys and ureters: 2-3 mm nonobstructing right lower pole renal calculus. No hydronephrosis on the right. Punctate left ureterovesicular junction calcification causing mild left hydroureteronephrosis. Stomach and bowel: Questionable focal thickening of the mid rectum. While likely related to peristalsis, there is a similar appearance on the prior study which is less prominent. No other areas of bowel wall thickening. No evidence of obstruction. Appendix: A normal appendix is identified. Intraperitoneal space: No inflammatory changes are identified. There is no free fluid or fluid collection seen. There is no pneumoperitoneum. Vasculature: The aorta is normal in course and caliber. No significant atherosclerotic calcifications are present. Lymph nodes: No enlarged lymph nodes are identified. Urinary bladder: The bladder is decompressed and collapsed. No abnormality identified. Reproductive: The prostate is grossly unremarkable. Bones/joints: No acute osseous abnormalities are seen. Soft tissues: Small periumbilical hernia containing only fat. The soft tissues are otherwise within normal limits. CT/CT kidney stone [id number] IMPRESSION: 1. Punctate left ureterovesicular junction calcification causing mild left hydroureteronephrosis. 2. 2-3 mm nonobstructing right lower pole renal calculus. 3. Questionable focal thickening of the mid rectum. While likely related to peristalsis, there is a similar appearance on the prior study which is less prominent, and stricture or mass cannot be excluded based on imaging. Recommend nonemergent GI consultation if indicated.
--- NOTE | 2023-11-23 17:10 | ED_ITS ---
HPI - Abdominal Pain 2 General: Chief Complaint: Abdominal Pain Stated Complaint: lower abd pain Time Seen by Provider: 11/23/23 16:43 Source: patient Mode of arrival: ambulatory Limitations: no limitations History of Present Illness: 28-year-old male states he started havin g severe left-sided flank pain this morning. He states the pain sharp in nature rates it a 9 out of 10. He denies any fevers denies any diarrhea has had some nausea denies any vomiting. Associated Symptoms: Denies chills, diarrhea, dysuria, fever(s), nausea and vomiting Review of Systems 2 Const: Denies: fever(s), chills, body aches or change in appetite ENMT: Denies: throat pain or dental pain Card: Denies: chest pain Resp: Denies: dyspnea GI: Reports: abdominal pain; Denies: nausea, vomiting or diarrhea : Reports: flank pain; Denies: dysuria Musc: Denies: neck pain or back pain Skin/Breast: Denies: rash Neuro: Denies: headache(s) PFSH ED 2 PFSH: Medical History Psychiatric care No pertinent family history Surgical History No pertinent past surgical history Social History Smoking and tobacco/nicotine status: unknown if used tobacco/nicotine Physical Exam 2 Const: COMMON NORMALS: no acute distress, patient oriented x3 and healthy appearing HENMT: COMMON NORMALS: normocephalic and atraumatic HEAD & SCALP: n ormocephalic and atraumatic Eye: COMMON NORMALS: Equal, round and reactive pupils present and EOMs intact bilaterally PUPIL: Yes Equal, round and reactive pupils present Neck/C-Spine: COMMON NORMALS: full ROM and supple Chest: COMMONS NORMALS: normal inspection of the chest Resp: COMMON NORMALS: normal respiratory effort Cardio: COMMON NORMALS: regular rate, regular rhythm and No murmurs present (Cardio) RATE: regular rate RHYTHM: regular rhythm GI: COMMON NORMALS: Normal to inspection, nondistended, normoactive bowel sounds present, Soft to palpation, non-tender and no masses PALPATION: Yes Soft to palpation Extremity: COMMON NORMALS: normal to inspection and full ROM Neuro: COMMON NORMALS: patient oriented x3, moves all extremities and no focal motor deficits Psych: COMMON NORMALS: mental status grossly normal, Normal thought process present and cooperative THOUGHT PROCESS: Normal thought process present Skin: COMMON NORMALS: no rashes or lesions noted and no wounds GENERAL SKIN EXAM: no rashes or lesions noted Course 2 Vital Signs: Vital signs: Vital Signs Temperature 98.1 F 11/23/23 15:38 Pulse Rate 66 11/23/23 15:38 Respiratory Rate 22 H 11/23/23 15:38 Blood Pressure 115/76 11/23/23 15:38 Pulse Oximetry 98 11/23/23 15:38 Oxygen Delivery Me thod Room Air 11/23/23 15:38 MDM - Abdominal Pain Medical Decision Making Patient presents here with flank pain he was found to have a kidney stone he is otherwise well-appearing here his pains improved here he is stable for discharge follow-up with PCP and return if worsening. Medical Records I reviewed the patient's medical records. Lab Data I reviewed the patient's lab results. 11/23/23 15:52 11/23/23 15:52 Labs/Radiology: Radiology Impressions Abdomen/Pelvis CT 11/23/23 17:09 IMPRESSION: 1. Punctate left ureterovesicular junction calcification causing mild left hydroureteronephrosis. 2. 2-3 mm nonobstructing right lower pole renal calculus. 3. Questionable focal thickening of the mid rectum. While likely related to peristalsis, there is a similar appearance on the prior study which is less prominent, and stricture or mass cannot be excluded based on imaging. Recommend nonemergent GI consultation if indicated. Laboratory Results WBC 8.49 10^3/uL (3.29-11.43) 11/23/23 15:52 RBC 5.18 10^6/uL (3.85-5.65) 11/23/23 15:52 Hgb 16.20 g/dL (11.27-16.99) 11/23/23 15:52 Hct 44.8 % (37-53) 11/23/23 15:52 MCV 86.5 fl (82-101) 11/23/23 15:52 MCH 31.3 pg (27-33) 11/23/23 15:52 MCHC 36.2 g/dL (30-55) 11/23/23 15:52 RDW 11.9 % (12.1-15.1) L 11/23/23 15:52 Plt Count 236 10^3/cmm (157-399) 11/23/23 15:52 MPV 10.3 fL (7.4-10.4) 11/23/23 15:52 Neut % (Auto) 60.9 % 11/23/23 15:52 Lymph % (Auto) 29.9 % 11/23/23 15:52 [place] % (Auto) 6.8 % 11/23/23 15:52 Eos % (Auto) 1.4 % 11/23/23 15:52 Baso % (Auto) 0.6 % 11/23/23 15:52 Neut # (Auto) 5.17 10^3/uL (1.8-7.7) 11/23/23 15:52 Lymph # (Auto) 2.5 10^3/uL (0.8-4.8) 11/23/23 15:52 [place] # (Auto) 0.6 10^3/uL (0.2-0.9) 11/23/23 15:52 Eos # (Auto) 0.1 10^3/uL (0.0-0.8) 11/23/23 15:52 Baso # (Auto) 0.1 10^3/uL (0.0-0.1) 11/23/23 15:52 Nucleated RBC % (auto) 0 % 11/23/23 15:52 Nucleated RBCs # 0.0 /100WBC 11/23/23 15:52 Sodium 139 mmol/L (136-145) 11/23/23 15:52 Potassium 4.0 mmol/L (3.5-5.1) 11/23/23 15:52 Chloride 103 mmol/L (98-107) 11/23/23 15:52 Carbon Dioxide 23 mmol/L (22-29) 11/23/23 15:52 Anion Gap 17.0 (5-19) 11/23/23 15:52 BUN 12 mg/dL (6-20) 11/23/23 15:52 Creatinine 0.9 mg/dL (0.7-1.2) 11/23/23 15:52 GFR Calculation 102.0 mL/min (90-130) 11/23/23 15:52 Glucose 94 mg/dL (65-115) 11/23/23 15:52 Calculated Osmolality 288 mOsm/kg (285-295) 11/23/23 15:52 Calcium 9.4 mg/dL (8.5-10.5) 11/23/23 15:52 Total Bilirubin 1.0 mg/dL (0.15-1.2) 11/23/23 15:52 AST 17 U/L (0-40) 11/23/23 15:52 ALT 20 U/L (0-41) 11/23/23 15:52 Alkaline Phosphatase 63 U/L (40-130) 11/23/23 15:52 Total Protein 6.9 g/dL (6.6-8.7) 11/23/23 15:52 Albumin 4.6 g/dL (3.5-5.2) 11/23/23 15:52 Globulin 2.3 g/dL (1.3-4.6) 11/23/23 15:52 Lipase 16 U/L (13-60) 11/23/23 15:52 Urine Color Yellow (Yellow) 11/23/23 15:24 Urine Appearance Clear (CLEAR) 11/23/23 15:24 Urine pH 7 (5-7) 11/23/23 15:24 Ur Specific [place] 1.010 (1.005-1.030) 11/23/23 15:24 Urine Protein Neg (Negative) 11/23/23 15:24 Urine Glucose (UA) Norm (Normal) 11/23/23 15:24 Urine Ketones 1+ (Negative) H 11/23/23 15:24 Urine Blood 3+ (Negative) H 11/23/23 15:24 Urine Nitrate Negative (Negative) 11/23/23 15:24 Urine Bilirubin Neg (Negative) 11/23/23 15:24 Urine Urobilinogen 1 mg/dL (Negative) H 11/23/23 15:24 Ur Leukocyte Esterase Negative (Negative) 11/23/23 15:24 Urine RBC >100 /hpf (0-2) 11/23/23 15:24 Urine WBC 0-4 /hpf (0-5) H 11/23/23 15:24 Ur Squamous Epith Cells None /hpf (0-5) 11/23/23 15:24 Amorphous Sediment Not Reportable 11/23/23 15:24 Urine Bacteria None /hpf (NONE) 11/23/23 15:24 Urine Mucus 2+ /hpf 11/23/23 15:24 All radiology interpretation(s) finalized by discharge Discharge Plan Discharge Patient Disposition: Home Clinical Impression: Kidney stone Condition: Stable Prescriptions: New hydrocodone-acetaminophen 5-325 mg tablet 1 tab PO Q6H PRN (Reason: pain) Qty: 14 0RF ondansetron 4 mg tablet,disintegrating 4 mg PO Q6H PRN (Reason: nausea and vomiting) Qty: 14 0RF No Action ibuprofen 600 mg tablet 600 mg PO Q8H PRN (Reason: pain) Qty: 20 0RF Discharge Orders: Discharge ED (Routine); Ordered 11/23/23 Ordered By: Patricia Storey Discharge Diet: Advance as tolerated Discharge Activity: Resume usual activity Patient Instructions: Kidney Stones (ED), Opioid Safety Coding Level of Care Code ED Drawing Operator for Michael Pierce
[2023-11-23] MEDS: ondansetron 2 mg/ML SDV 2 mL 4 MG IVP (17:42)
[2023-11-23] MEDS: HYDROmorphone 1 mg/mL INJ 1 mL IVP (17:42)
[2023-11-23] MEDS: ketorolac 30 mg/mL INJ 15 MG IVP (18:53)
[2023-11-23 19:14] VITALS: BP 129/77; PULSE 88; RESP 16; O2SAT 95
== END 2023-11-23 19:15 | disposition home or self-care (01) ==
PROVIDERS: Emergency Provider Emergency Medicine
DX: N13.2 Hydronephrosis with renal and ureteral calculous obstruction (principal)
CPT/HCPCS: 36415; 74176; 80053; 81000; 81001; 83690; 85025; 87086; 96374; 96375; 99285; J1170; J1885; J2405

== ENCOUNTER 2024-11-29 09:08 | Emergency (ER) | payer SELFPAY ==
[2024-11-29 09:14] VITALS: BP 140/97; PULSE 82; RESP 20; TEMP 36.7; O2SAT 98; BMI 30.1
[2024-11-29] MEDS: ondansetron 2 mg/ML SDV 2 mL 4 MG IVP (09:18)
[2024-11-29 09:19] VITALS: RESP 18
[2024-11-29] MEDS: morphine 4 mg/mL SDV 1 mL IVP (09:19)
--- NOTE | 2024-11-29 09:24 | ED_ITS ---
HPI - Abdominal Pain 2 General: Chief Complaint: Abdominal Pain Stated Complaint: n/v, sweating, back and side pain, blood in urine Time Seen by Provider: 11/29/24 09:15 Source: patient Mode of arrival: ambulatory Limitations: no limitations History of Present Illness: 29-year-old male history of kidney stone s the past states that over the last 4 days has been having left-sided flank pain. He states he been having some hematuria as well. He states pains been sharp in nature rates it a 7 out of 10 denies any worse improving factors has had some nausea denies any vomiting denies any fevers. Associated Symptoms: Reports hematuria; Denies chills, diarrhea, fever(s), nausea and vomiting Related Data Previous Rx's ?Medication ?Instructions ?Recorded hydrocodone 5 mg-acetaminophen 325 1 tab PO Q6H PRN pa in #14 tabs 11/29/24 mg tablet ondansetron 4 mg disintegrating 4 mg PO Q6H PRN nausea and 11/29/24 tablet vomiting #14 tabs Allergies Allergy/AdvReac Type Severity Reaction Status Date / Time metoclopramide (From Reglan) Allergy Unknown Verified 11/29/24 09:17 Review of Systems 2 Const: Denies: fever(s), chills, body aches or change in appetite ENMT: Denies: throat pain or dental pain Card: Denies: chest pain Resp: Denies: dyspnea GI: Denies: abdominal pain, nausea, vomiting or diarrhea : Reports: flank pain and hematuria Musc: Denies: neck pain or back pain Skin/Breast: Denies: rash Neuro: Denies: headache(s) PFSH ED 2 PFSH: Medical History No pertinent family history Surgical History No pertinent past surgical history Social History Smoking and tobacco/nicotine status: unknown if used tobacco/nicotine Physical Exam 2 Const: COMMON NORMALS: no acute distress, patient oriented x3 and healthy appearing HENMT: COMMON NORMALS: normocephalic and atraumatic HEAD & SCALP: n ormocephalic and atraumatic Eye: COMMON NORMALS: conjunctivae normal CONJUNCTIVA: Yes conjunctivae normal Neck/C-Spine: COMMON NORMALS: full ROM and supple Chest: COMMONS NORMALS: normal inspection of the chest Resp: COMMON NORMALS: normal respiratory effort, No retractions, No use of accessory muscles and clear to auscultation bilaterally AUSCULTATION: clear to auscultation bilaterally Cardio: COMMON NORMALS: regular rate, regular rhythm and No murmurs present (Cardio) RATE: regular rate RHYTHM: regular rhythm GI: COMMON NORMALS: Normal to inspection, nondistended, normoactive bowel sounds present, Soft to palpation, non-tender and no masses PALPATION: Yes Soft to palpation Extremity: COMMON NORMALS: normal to inspection and full ROM Neuro: COMMON NORMALS: patient oriented x3, moves all extremities and no focal motor deficits Psych: COMMON NORMALS: mental status grossly normal, Normal thought process present and cooperative THOUGHT PROCESS: Normal thought process present Skin: COMMON NORMALS: no rashes or lesions noted and no wounds GENERAL SKIN EXAM: no rashes or lesions noted Course 2 Vital Signs: Vital signs: Vital Signs Temperature 98.1 F 11/29/24 09:14 Pulse Rate 59 L 11/29/24 10:30 Respiratory Rate 16 11/29/24 10:30 Blood Pressure 149/94 11/29/24 10:30 Pulse Oximetry 99 11/29/24 10:30 Oxygen Delivery Me thod Room Air 11/29/24 10:30 MDM - Abdominal Pain Medical Decision Making Patient presents here with flank pain CT shows kidney stone likely causing his pain no UTI his pain is much improved here he stable for discharge follow-up PCP return if worsening. Medical Records I reviewed the patient's medical records. Lab Data I reviewed the patient's lab results. 11/29/24 09:14 11/29/24 09:14 Labs/Radiology: Laboratory Results WBC 10.07 10^3/uL (3.29-11.43) 11/29/24 09:14 RBC 5.85 10^6/uL (3.85-5.65) H 11/29/24 09:14 Hgb 18.00 g/dL (11.27-16.99) H 11/29/24 09:14 Hct 50.8 % (37-53) 11/29/24 09:14 MCV 86.8 fl (82-101) 11/29/24 09:14 MCH 30.8 pg (27-33) 11/29/24 09:14 MCHC 35.4 g/dL (30-55) 11/29/24 09:14 RDW 11.9 % (12.1-15.1) L 11/29/24 09:14 Plt Count 319 10^3/cmm (157-399) 11/29/24 09:14 MPV 10.0 fL (7.4-10.4) 11/29/24 09:14 Neut % (Auto) 70.9 % 11/29/24 09:14 Lymph % (Auto) 21.1 % 11/29/24 09:14 [place] % (Auto) 5.9 % 11/29/24 09:14 Eos % (Auto) 0.9 % 11/29/24 09:14 Baso % (Auto) 0.7 % 11/29/24 09:14 Neut # (Auto) 7.15 10^3/uL (1.8-7.7) 11/29/24 09:14 Lymph # (Auto) 2.1 10^3/uL (0.8-4.8) 11/29/24 09:14 [place] # (Auto) 0.6 10^3/uL (0.2-0.9) 11/29/24 09:14 Eos # (Auto) 0.1 10^3/uL (0.0-0.8) 11/29/24 09:14 Baso # (Auto) 0.1 10^3/uL (0.0-0.1) 11/29/24 09:14 Nucleated RBC % (auto) 0 % 11/29/24 09:14 Nucleated RBCs # 0.0 /100WBC 11/29/24 09:14 Sodium 145 mmol/L (136-145) 11/29/24 09:14 Potassium 4.3 mmol/L (3.5-5.1) 11/29/24 09:14 Chloride 106 mmol/L (98-107) 11/29/24 09:14 Carbon Dioxide 22 mmol/L (22-29) 11/29/24 09:14 Anion Gap 21.3 (5-19) H 11/29/24 09:14 BUN 19 mg/dL (6-20) 11/29/24 09:14 Creatinine 0.9 mg/dL (0.7-1.2) 11/29/24 09:14 GFR Calculation 101.2 mL/min (90-130) 11/29/24 09:14 Glucose 108 mg/dL (65-115) 11/29/24 09:14 Calculated Osmolality 303 mOsm/kg (285-295) H 11/29/24 09:14 Calcium 9.4 mg/dL (8.5-10.5) 11/29/24 09:14 Total Bilirubin 1.5 mg/dL (0.15-1.2) H 11/29/24 09:14 AST 15 U/L (0-40) 11/29/24 09:14 ALT 11 U/L (0-41) 11/29/24 09:14 Alkaline Phosphatase 71 U/L (40-130) 11/29/24 09:14 Total Protein 7.6 g/dL (6.6-8.7) 11/29/24 09:14 Albumin 5.1 g/dL (3.5-5.2) 11/29/24 09:14 Globulin 2.5 g/dL (1.3-4.6) 11/29/24 09:14 Lipase 66 U/L (13-60) H 11/29/24 09:14 Urine Color [place] (Yellow) A 11/29/24 09:30 Urine Appearance Clear (CLEAR) 11/29/24 09:30 Urine pH 5.5 (5-7) 11/29/24 09:30 Ur Specific [place] 1.030 (1.005-1.030) 11/29/24 09:30 Urine Protein 1+ (Negative) A 11/29/24 09:30 Urine Glucose (UA) Negative (Normal) 11/29/24 09:30 Urine Ketones Trace (Negative) 11/29/24 09:30 Urine Blood 3+ (Negative) A 11/29/24 09:30 Urine Nitrate Negative (Negative) 11/29/24 09:30 Urine Bilirubin Negative (Negative) 11/29/24 09:30 Urine Urobilinogen 1.0 mg/dL (Negative) 11/29/24 09:30 Ur Leukocyte Esterase Trace (Negative) A 11/29/24 09:30 Urine RBC 21-50 /hpf (0-2) H 11/29/24 09:30 Urine WBC 0-5 /hpf (0-5) 11/29/24 09:30 Ur Squamous Epith Cells 0-5 /hpf (0-5) 11/29/24 09:30 Amorphous Sediment Not Reportable 11/29/24 09:30 Urine Bacteria None seen /hpf (NONE) 11/29/24 09:30 Hyaline Casts 2.87 /lpf 11/29/24 09:30 All radiology interpretation(s) finalized by discharge Discharge Plan Discharge Patient Disposition: Home Clinical Impression: Kidney stone Condition: Stable Prescriptions: New hydrocodone-acetaminophen 5-325 mg tablet 1 tab PO Q6H PRN (Reason: pain) Qty: 14 0RF ondansetron 4 mg tablet,disintegrating 4 mg PO Q6H PRN (Reason: nausea and vomiting) Qty: 14 0RF Discharge Orders: Discharge ED (Routine); Ordered 11/29/24 Ordered By: Patricia Storey Discharge Diet: Advance as tolerated Discharge Activity: Resume usual activity Patient Instructions: Kidney Stones (ED) Print Language: Kos[place] Coding Level of Care Code ED Licensed Chemical Spray Technician for Michael Pierce
[2024-11-29 09:29] LABS: Hematocrit 50.8 % (37-53); Hemoglobin 18.00 g/dL (11.27-16.99); Mean Corpuscular HGB Conc 35.4 g/dL (30-55); Mean Corpuscular Hemoglobin 30.8 pg (27-33); Mean Corpuscular Volume 86.8 fl (82-101); Nucleated Red Blood Cells % 0 %; Platelet Count 319 10^3/cmm (157-399); Red Blood Count 5.85 10^6/uL (3.85-5.65); White Blood Count 10.07 10^3/uL (3.29-11.43)
[2024-11-29 09:40] LABS: Alanine Aminotransferase 11 U/L (0-41); Albumin Level 5.1 g/dL (3.5-5.2); Alkaline Phosphatase 71 U/L (40-130); Anion Gap 21.3 (5-19); Aspartate Amino Transferase 15 U/L (0-40); Blood Urea Nitrogen 19 mg/dL (6-20); Calcium 9.4 mg/dL (8.5-10.5); Carbon Dioxide 22 mmol/L (22-29); Chloride 106 mmol/L (98-107); Creatinine Clr Calc Pharmacy 142.8222; Globulin 2.5 g/dL (1.3-4.6); Glucose 108 mg/dL (65-115); Lipase 66 U/L (13-60); Osmolality Calculated 303 mOsm/kg (285-295); Potassium 4.3 mmol/L (3.5-5.1); Sodium 145 mmol/L (136-145); Total Protein 7.6 g/dL (6.6-8.7)
[2024-11-29 09:43] LABS: Glucose Urine UA Negative (Normal); Nitrate Urine Negative (Negative); Specific Gravity, Urine 1.030 (1.005-1.030)
[2024-11-29 09:47] VITALS: BP 119/83; PULSE 60; RESP 14; O2SAT 95
[2024-11-29 09:48] LABS: Add Urine Microscopic? YES
--- NOTE | 2024-11-29 10:07 | CT_ITS ---
WS: [id number] CT ABDOMEN PELVIS TECHNIQUE: Noncontrast CT of the abdomen and pelvis with coronal and sagittal reformatted images. CLINICAL INFORMATION: flank pain COMPARISON: 11/23/2023 DLP: 888.[address] scans at [facility] use at least one of these dose optimization techniques: automated exposure control; mA and/or kV adjustment per patient size (includes targeted exams where dose is matched to clinical indication); or iterative reconstruction. FINDINGS: No obstructing renal or ureteral calculi. No hydronephrosis in the kidney. Punctate 3.3 mm calculus in the bladder at the RIGHT UVJ suspicious for recently passed calculus. Normal noncontrast liver and spleen. Small esophageal hiatal hernia. Normal noncontrast pancreas. Adrenal glands are normal. Normal caliber abdominal aorta. Normal appendix in the RIGHT lower quadrant. Tiny fat-containing umbilical hernia. Disc bulging worse at L4-L5 and L5-S1. CT/CT kidney stone [id number] IMPRESSION: 1. No obstructing LEFT renal or ureteral calculi. No hydronephrosis in the LEF T kidney. 2. Punctate calculus in the bladder at the RIGHT UVJ measuring 3.3 mm. This is suspicious for recently passed calculus. This is new since 11/23/2023. No hydro nephrosis in the RIGHT kidney. Notified Patricia Storey MD at 11/29/2024 10:43 AM.
[2024-11-29 10:30] VITALS: BP 149/94; PULSE 59; RESP 16; O2SAT 99
[2024-11-29 11:05] VITALS: BP 137/82; PULSE 50; O2SAT 93
== END 2024-11-29 11:06 | disposition home or self-care (01) ==
PROVIDERS: Emergency Provider Emergency Medicine
DX: N20.0 Calculus of kidney (principal)
CPT/HCPCS: 74176; 80053; 81001; 83690; 85025; 87086; 96374; 96375; 99285; J1885; J2270; J2405